=== PATIENT | female | born 1955 | race Caucasian/White ===

== ENCOUNTER 2017-05-04 09:30 | Outpatient (CLI) | payer BC ==
--- NOTE | 2017-05-04 11:05 | ULT ---
RIGHT UPPER QUADRANT ULTRASOUND: Date: 05-04-17 Provided Clinical History: Nausea, vomiting, epigastric pain. FINDINGS: The visualized abdominal aorta, IVC, and pancreas appear normal. The liver demonstrates no mass or in trahepatic biliary ductal dilatation. The common duct is not dilated. The gallbladder demonstrates no stones, wall thickening or pericholecystic fluid. Kidneys demonstrate no hydronephrosis or mass. Spl een is not enlarged and demonstrates no focal abnormality. IMPRESSION: Unremarkable abdominal ultrasound. POS: [facility]
== END 2017-05-04 09:31 | disposition home or self-care (01) ==
LOC: ULT 09:30
PROVIDERS: ATTEND Internal Medicine Gastroenterology
DX: R10.13 Epigastric pain (principal); R11.2 Nausea with vomiting, unspecified; R63.4 Abnormal weight loss
CPT/HCPCS: 76700

== ENCOUNTER 2017-05-05 11:25 | Outpatient (CLI) | payer BC ==
--- NOTE | 2017-05-05 13:37 | CT ---
CT ABDOMEN AND PELVIS WITH CONTRAST: Date: 05/05/17 COMPARISON: None. HISTORY: Abnormal liver function tests and epigastric abdominal pain. Patient has history of squamous cell and basal cell skin cancers. Patient has had nausea and vomiting for the past 3 weeks. TECHNIQUE: Multiple contiguous axial images were obtained in a CT of the abdomen and pelvis with contrast. PO co ntrast was administered. Coronal reformats were performed. FINDINGS: The liver, gallbladder, right kidney, adrenal glands, spleen, and pancreas are unremarkable. There is a nonspecific calcification in a patricia in the lower pole of the left kidney measuring 9.0 mm in grea test dimension. No free air, free fluid, or stranding changes are seen in the abdomen or pelvis. The patient is status post hysterectomy. The large and small bowel are unremarkable. The appendix is normal. No abdominal or pelvic lymphadenopathy seen. Atherosclerotic calcifications are seen in the a gwyn. The visualized inferior thorax and abdominal wall soft tissues are unremarkable. IMPRESSION: Nonobstructing left renal calcification POS: [facility]
== END 2017-05-05 11:26 | disposition home or self-care (01) ==
LOC: CT 11:25
PROVIDERS: ATTEND Internal Medicine Gastroenterology
DX: R10.13 Epigastric pain (principal); R94.5 Abnormal results of liver function studies; N28.89 Other specified disorders of kidney and ureter
CPT/HCPCS: 74177

== ENCOUNTER 2017-05-22 14:11 | Observation (INO) | payer BC ==
[2017-05-22 14:55] LABS: Bilirubin Small (Negative); Blood, Urine Negative (Negative); Clarity CLOUDY (Clear); Glucose, Urine (Dipstick) Negative (Negative); Leukocyte Large (Negative); Nitrite Negative (Negative); Protein, Urine (Dipstick) Negative (Neg-Trace); Specific Gravity, Urine 1.017 (1.002-1.036)
[2017-05-22 14:57] LABS: Bacteria/HPF Rare-Few HPF (None Seen); Pathc Cast-AUWi Flag 0.81 (0-2.49); Squamous Epithelial None Seen HPF (0-3)
[2017-05-22 15:09] LABS: Crystals/HPF 1+ CA OXALATE HPF (Negative); Hyaline Casts/LPF 4-6 HYALINE CAST LPF (0-3 Hyaline)
[2017-05-22 15:57] LABS: #Basophils 0.1 thou/uL (0.0-0.2); #Eosinphils 0.3 thou/uL (0.0-0.7); #Lymphocytes 1.5 thou/uL (1.20-3.40); #Monocytes 0.4 thou/uL (0.11-0.59); #Neutrophils 1.5 thou/uL (1.40-6.50); %Basophils 1.4 % (0.0-1.0); %Lymphocytes 39.8 % (21.0-51.0); %Monocytes 11.6 % (0.0-10.0); %Neutrophils 40.2 % (42.0-75.0); Hemoglobin 13.7 g/dL (12.0-16.0); Mean Corpuscular Hemoglobin 31.5 pg (27.0-31.0); Mean Corpuscular Volume 92.5 fl (81.0-99.0); Mean Platelet Volume 8.9 fL (7.4-10.4); Platelet Count 170 thou/uL (130-400); RBC Distribution Width 11.8 % (11.5-14.5); Red Blood Cell (RBC) Count 4.36 mill/uL (4.20-5.40); White Blood Cell (WBC) Count 3.8 thou/uL (4.8-10.8)
[2017-05-22 16:22] LABS: ALT (SGPT) 34 U/L (8-55); AST (SGOT) 52 U/L (5-34); Albumin 3.6 g/dL (3.5-5.0); Alkaline Phosphatase 192 U/L (40-150); Anion Gap 13 mmol/L (10-20); BUN (Urea Nitrogen) 8 mg/dL (9.8-20.1); Bilirubin, Total 0.8 mg/dL (0.2-1.2); Calc. Creatinine Clearance 0 mL/min (70-130); Calcium 10.6 mg/dL (7.8-10.44); Carbon Dioxide 28 mmol/L (22-29); Chloride 102 mmol/L (98-107); Estimated GFR-MDRD 55; Globulin 3.1 g/dL (2.4-3.5); Glucose 100 mg/dL (70-105); Potassium 3.3 mmol/L (3.5-5.1); Protein, Total 6.7 g/dL (6.0-8.3); Sodium 140 mmol/L (136-145)
[2017-05-22] MEDS ORDERED: Ondansetron HCl/PF 4 MG/2 ML Vial ONE (17:57)
[2017-05-22] MEDS ORDERED: Potassium Chloride 20 MEQ TAB ONE (18:41)
[2017-05-22] MEDS ORDERED: Ondansetron HCl/PF 4 MG/2 ML Vial IVP PRN (22:04)
[2017-05-22] MEDS ORDERED: Acetaminophen 325 MG TAB PO PRN (22:04)
[2017-05-22] MEDS ORDERED: Promethazine HCl 25 MG/ML VIAL SLOW IVP PRN (22:04)
[2017-05-22] MEDS ORDERED: Ondansetron ODT 4 MG TAB SL PRN (22:04)
[2017-05-22] MEDS ORDERED: Sodium Chloride 0.9% 10 ML ONE (23:30)
[2017-05-22] MEDS: Sodium Chloride 0.9% 1,000 ML IV SCH (23:42)
--- NOTE | 2017-05-23 02:47 | HP ---
DATE OF ADMISSION: 05/22/2017 CHIEF COMPLAINT: Vomiting. HISTORY OF PRESENT ILLNESS: This is a 61-year-old female with morbidly obese. She came in with a co mplaint of persistent vomiting, cyclical vomiting for the past one month and has been closely monitor ed by her GI doctor, Dr. Cohen who had multiple investigations on this patient and patient has a pend ing MRCP this following Monday. Patient was persistently vomiting and was severely dehydrated, so she was asked by Dr. Cohen's clinic to go to the ER for further evaluation. When patient presented to the ER, she was pretty much severely dehydrated and was weak and was also found to have a low-pota ssium. This patient was admitted for further evaluation. She had urinalysis, which showed an eviden ce of severe urinary tract infection. Patient denied having any abdominal pain. Patient denied having any dizziness. Denied having any ri nging in the ears. Denied having any vertigo. Denied having any headaches. Her vomiting has no rel ation with food or any evidence of food poisoning. PAST MEDICAL HISTORY: 1. Hypertension. 2. Gastroesophageal reflux disease. 3. Hyperlipidemia. 4. Depression. PAST SURGICAL HISTORY: Status post hysterectomy. FAMILY HISTORY: No history of coronary artery disease or any premature deaths in the family. 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 No history of alcohol, no history of illicit drug use. HOME MEDICATIONS: 1. Gabapentin 300 mg p.o. in the bedtime. 2. Metoprolol 50 mg p.o. daily. 3. Omeprazole 40 mg p.o. b.i.d. 4. Potassium 20 mEq p.o. daily. 5. Torsemide 20 mg p.o. daily. ALLERGIES: No known drug allergies. REVIEW OF SYSTEMS: All 12 systems were reviewed with the patient thoroughly and found to be negative at this time. Systems reviewed HEENT, CVS, W[employer] CHIE[employer] ENGINEER, respiratory, GI, , musculoskeletal, skin, neurolo gic, psychiatric. PHYSICAL EXAMINATION: VITAL SIGNS: Blood pressures are 130/80, heart rate is 88, respirations 18, saturation 98%. GENERAL: The patient is moderately built and moderately nourished. She does not appear to be in acu te distress. CARDIOVASCULAR: S1, S2 normal. No murmurs, rubs, or gallops. LUNGS: Bilateral air entry was equal. No wheezing, no crackles. ABDOMEN: Soft, nontender, no guarding, no rebound tenderness. Bowel sounds are normal. MUSCULOSKELETAL: No calf tenderness. No pedal edema. EXTREMITIES: No joint tenderness, no joint swelling. SKIN: No cyanosis or erythema, no rash, no pallor. NEUROLOGIC: Cranial nerve examination II-XII intact. No focal deficits were noted. LABORATORY DATA: WBC 3.8, hemoglobin is 13.7, hematocrit is 40.3, platelets 170. Sodium is 140, pot assium 3.3, chloride is 102, bicarbonate is 28, BUN is 8. UA was positive for urinary tract infection. ASSESSMENT AND PLAN: 1. Acute urinary tract infection. 2. Intractable nausea and vomiting. 3. Severe dehydration. 4. Hypokalemia. 5. History of hypertension. 6. History of gastroesophageal reflux disease. PLAN: 1. Plan is to start the patient on IV fluids at this time and will keep it on maintenance fluids. Maggy camacho has been started on Rocephin in the ER. We will continue with Rocephin at this time and wait for urine cultures. 2. Consulted GI, Dr. Cohen, who plan to see the patient, Dr. Cohen, either he or his partner, Dr. Tesha aguayo, will see the patient and will further evaluate her cyclical vomiting. Most likely because of th e UTI the vomiting could be related to the urinary tract infection. 3. Patient has mild hypokalemia likely from torsemide use. We will hold off on the torsemide at thi s time and closely monitor for any volume overload states. We will correct the hypokalemia with the potassium supplementation. 4. Gastroesophageal reflux disease. We will continue the patient on omeprazole. 5. DVT prophylaxis. Lovenox 40 mg p.o. daily. I spent 70 minutes of this patient.
[2017-05-23] MEDS: Sodium Chloride 0.9% 1,000 ML IV SCH (08:00)
[2017-05-23] MEDS ORDERED: Non-Formulary Item 1 EACH (Omeprazole [Omeprazole] 40 MG) PO SCH (09:00)
[2017-05-23] MEDS ORDERED: Torsemide 20 MG TAB PO SCH (09:00)
[2017-05-23] MEDS ORDERED: Metoprolol Tartrate 50 MG TAB PO SCH (09:00)
[2017-05-23] MEDS ORDERED: OMEPRAZOLE 40 MG PO SCH (09:00)
[2017-05-23 09:53] VITALS: BMI 28.1
[2017-05-23 11:02] VITALS: BP 118/64; TEMP 98
[2017-05-23] MEDS ORDERED: Potassium Chloride 20 MEQ TAB PO SCH (11:15)
[2017-05-23] MEDS ORDERED: Ondansetron HCl/PF 4 MG/2 ML Vial IVP PRN (14:48)
[2017-05-23] MEDS ORDERED: cefTRIAXone\\ROCEPHIN 1 GM in Syringe 10 ML SLOW IVP SCH (17:00)
[2017-05-23] MEDS ORDERED: Gabapentin 300 MG CAP PO SCH (21:00)
--- NOTE | 2017-05-24 00:54 | DIS ---
DATE OF ADMISSION: 05/23/2017 DATE OF DISCHARGE: The patient left against medical advice on 05/23/2017. PRIMARY CARE PROVIDER: Soy Bolanos D.O. HOSPITAL COURSE: Ms. Evangelista is a pleasant 61-year-old lady who was admitted to [facility] for nausea and vomiting on 05/23/2017. Please refer to history and physical note from t he date for further information. She was waiting to see Gastroenterology Service. That afternoon, s he did not wish to stay in the hospital. She left against medical advice.
[2017-05-24] MEDS ORDERED: Potassium Chloride 20 MEQ TAB PO SCH (08:00)
--- NOTE | 2017-05-25 15:45 | PDOC.EVN ---
Event Note - Event Note Event Note: Notified by microbiology lab re: urine culture. Contacted Dr Bolanos's office and discussed with his physician case management assistant Jimmie Sanderson. Notified him of the culture report. He will follow up.
== END 2017-05-23 15:20 | disposition home or self-care (01) ==
LOC: ERS 14:11 → 3SE 21:59
PROVIDERS: ADMIT Family Medicine; ATTEND Family Medicine
DX: R11.2 Nausea with vomiting, unspecified (principal); N39.0 Urinary tract infection, site not specified; E86.0 Dehydration; E87.6 Hypokalemia; I10 Essential (primary) hypertension; K21.9 Gastro-esophageal reflux disease without esophagitis; E78.5 Hyperlipidemia, unspecified; F32.9 Major depressive disorder, single episode, unspecified; E66.01 Morbid (severe) obesity due to excess calories; Z68.28 Body mass index [BMI] 28.0-28.9, adult; Z90.710 Acquired absence of both cervix and uterus
CPT/HCPCS: 36415; 80053; 81003; 81015; 85025; 87077; 87086; 87186; 96361; 96374; 96375; A4216; G0378; J0696; J2405